=== PATIENT | female | born 1990 | race Caucasian/White ===

== ENCOUNTER 2017-06-25 09:59 | Outpatient (CLI) | payer OTHER ==
[~2017-06-25] VITALS: Ht 162.6 cm; Wt 69.1 kg
[~2017-06-25 09:59] MED LIST: DOCU240C31 PO; IBUP-1222 PO; NITR100C56 PO; OXYC-302 PO; PREN1COM5 PO
[2017-06-25 10:30] VITALS: BP 103/59
[2017-06-25 11:09] LABS: MICROSCOPIC INDICATED
== END 2017-06-25 12:56 | disposition home or self-care (01) ==
LOC: LDOP 09:59
PROVIDERS: ATTEND Obstetrics & Gynecology
DX: O21.2 Late vomiting of pregnancy (principal); Z3A.23 23 weeks gestation of pregnancy
CPT/HCPCS: 59025; 81001; 87086; 99211; G0463